=== PATIENT | male | born 1935 | race Caucasian/White ===

== ENCOUNTER 2023-08-29 12:49 | Emergency (ER) | payer MEDICARE ==
[~2023-08-29] VITALS: Ht 165.1 cm; Wt 67.7 kg
[~2023-08-29 12:49] MED LIST: CLOP75TA34 PO; DOCU100C40 PO; HYDR-3972 PO; LISI20TA28 PO; METO-395 PO; OMEP20CA16 PO; ROSU20TA73 PO
[2023-08-29 14:26] LABS: ALANINE AMINOTRANSFERASE 53 U/L (12-78); ALBUMIN 3.3 G/DL (3.4-5.0); ALBUMIN/GLOBULIN RATIO 0.8 (1.1-1.5); ALKALINE PHOSPHATASE 64 IU/L (46-116); ANION GAP 5 (8-16); ASPARTATE AMINO TRANSFERASE 49 U/L (10-37); BILIRUBIN,TOTAL 0.6 MG/DL (0.1-1.0); BLOOD UREA NITROGEN 29 MG/DL (7-18); BUN/CREATININE RATIO 33.3 (10.0-20.0); CALCIUM 8.6 MG/DL (8.5-10.1); CHLORIDE 106 MMOL/L (99-107); CREATININE 0.87 MG/DL (0.60-1.10); GLUCOSE 95 MG/DL (70-104); LIPASE 58 U/L (16-77); POTASSIUM 4.6 MMOL/L (3.5-5.1); SODIUM 140 MMOL/L (135-145); TOTAL CARBON DIOXIDE 29.1 MMOL/L (24-32); TOTAL PROTEIN 7.4 G/DL (6.4-8.2); eCRCL 52 ML/MIN; eGFR 83 ML/MIN
[2023-08-29 14:32] LABS: BASOPHILS % (AUTO) 0.7 % (0-1); EOSINOPHILS # (AUTO) 0.1 X10'3 (0-0.9); EOSINOPHILS % (AUTO) 2.7 % (0-6); HEMATOCRIT 32.4 % (42.0-52.0); HEMOGLOBIN 10.4 g/dl (14.0-17.9); LYMPHOCYTES # (AUTO) 0.8 X10'3 (1.1-4.8); LYMPHOCYTES % (AUTO) 16.2 % (21-51); MEAN CORPUSCULAR HGB CONC 32.1 g/dL (33.0-36.5); MEAN CORPUSCULAR VOLUME 87.3 FL (78-98); MEAN PLATELET VOLUME 7.7 FL (7.4-10.4); MONOCYTES # (AUTO) 0.5 X10'3 (0-0.9); MONOCYTES % (AUTO) 10.3 % (2-12); NEUTROPHILS # (AUTO) 3.3 X10'3 (1.8-7.7); NEUTROPHILS % (AUTO) 70.1 % (42-75); PLATELET COUNT 172 X10'3 (140-440); RED BLOOD COUNT 3.71 X10'6 (4.70-6.10); RED CELL DISTRIBUTION WIDTH 16.7 % (11.5-14.5); WHITE BLOOD COUNT 4.7 X10'3 (4.5-11.0)
[2023-08-29 14:57] LABS: BILIRUBIN,URINE NEGATIVE (Neg); CLARITY,URINE CLEAR (Clear); COLOR,URINE YELLOW (Yellow); GLUCOSE, URINE NEGATIVE (Neg); KETONES,URINE NEGATIVE (Neg); LEUKOCYTE ESTERASE ,URINE NEGATIVE (Neg); NITRITES, URINE NEGATIVE (Neg); OCCULT BLOOD,URINE NEGATIVE (Neg); PROTEIN,URINE NEGATIVE (Neg); UROBILINOGEN,URINE 0.2 E.U/dL (0.2-1.0)
[2023-08-29 15:01] LABS: UA COLLECTION TYPE URINAL
[2023-08-29 17:05] VITALS: BP 153/93; PULSE 87; RESP 15; O2SAT 97
[2023-08-29] MEDS ORDERED: POTA-192 PO (17:40)
[2023-08-29] MEDS ORDERED: FURO-150 PO (17:40)
[2023-08-29] MEDS ORDERED: APIX5TAB3 PO (17:40)
[2023-08-29] MEDS ORDERED: CLOP75TA34 PO (17:40)
[2023-08-29] MEDS ORDERED: PANT40TA54 PO (17:40)
[2023-08-29] MEDS ORDERED: DOCU-148 PO (17:40)
[2023-08-29] MEDS ORDERED: METO-411 PO (17:40)
[2023-08-29] MEDS ORDERED: CITA20TA28 PO (17:40)
== END 2023-08-29 21:17 | disposition home or self-care (01) ==
LOC: ER 12:50
DX: K76.9 Liver disease, unspecified (principal); K74.60 Unspecified cirrhosis of liver; Z79.899 Other long term (current) drug therapy
CPT/HCPCS: 36415; 74176; 76700; 80053; 81003; 83690; 84484; 85025; 93971; 99285; J7030